=== PATIENT | male | born 1985 | race Caucasian/White ===

== ENCOUNTER 2022-01-16 19:20 | Emergency (ER) | payer OTHER ==
[2022-01-16 20:30] LABS: ALBUMIN 3.9 g/dL (3.4-5.0); BILIRUBIN - TOTAL 0.4 mg/dL (0.2-1.0); BUN/CREAT RATIO (CALC) 13.7 RATIO; CREATININE 1.17 mg/dL (0.67-1.17); GLOBULIN (CALCULATION) 3.7 g/dL; POTASSIUM 3.6 mmol/L (3.5-5.1); TOTAL PROTEIN 7.6 g/dL (6.4-8.2)
[2022-01-16 20:34] LABS: BASOPHIL 0.8 % (0-2); EOSINOPHIL 1.3 % (0-5); HCT 49.5 % (42.0-52.0); HGB 16.2 g/dl (13.2-18.0); LYMPHOCYTE 23.8 % (15-48); MCH 30.6 pg (25.0-31.0); MCHC 32.7 g/dL (32.0-36.0); MCV 93.4 fL (78.0-100.0); MONOCYTE 7.4 % (0-12); MPV 10.8 fL (6.0-9.5); NEUTROPHIL 65.9 % (41-80); NRBC 0; PLT 253 K/uL (150-400); RDW 13.8 % (11.5-14.0); WBC 8.9 K/uL (4.0-10.5)
[2022-01-16 20:38] LABS: INR 1.02 (0.9-1.2); PROTHROMBIN TIME 13.1 SECONDS (11.9-13.9)
== END 2022-01-17 01:45 | disposition other institution (70) ==
LOC: FER 19:20
PROVIDERS: Emergency Medicine
DX: S82.832A Other fracture of upper and lower end of left fibula, initial encounter for closed fracture (principal); S92.322A Displaced fracture of second metatarsal bone, left foot, initial encounter for closed fracture; S82.252A Displaced comminuted fracture of shaft of left tibia, initial encounter for closed fracture; S80.212A Abrasion, left knee, initial encounter; S50.312A Abrasion of left elbow, initial encounter; S30.811A Abrasion of abdominal wall, initial encounter; F17.200 Nicotine dependence, unspecified, uncomplicated; Z23 Encounter for immunization; Z28.310 Unvaccinated for COVID-19; V86.59XA Driver of other special all-terrain or other off-road motor vehicle injured in nontraffic accident, initial encounter
CPT/HCPCS: 27810; 36415; 70450; 71260; 72125; 72128; 72131; 73560; 73590; 73600; 73610; 73630; 80053; 83690; 85025; 85610; 90471; 90715; 96365; 96366; 96375; 96376; G0480; J0690; J1170; J2704; J3490; J7120; Q9967